=== PATIENT | female | born 1970 | race Caucasian/White ===

== ENCOUNTER → 2017-07-30 | Day surgery (SDC) | payer OTHER ==
--- NOTE | 2017-07-29 12:05 | Diagnostic Imaging Report ---
PROCEDURE: Frontal and lateral views of the chest. COMPARISON: None. INDICATIONS: PRE OPERATIVE CHEST X-RAY FOR ANKLE SURGERY FINDINGS: Lines/tubes: None. Lungs: The lungs are well inflated. 1.2 x 1.1 x 1.0 cm pulmonary nodule in the anterior left upper lobe. There is no evidence of pneumonia or pulmonary edema. Pleura: There is no pleural effusion or pneumothorax. Heart and mediastinum: Cardiothymic silhouette is unremarkable. Pulmonary vasculature is normal. Bones: No acute bony abnormality. IMPRESSION: 1. No acute cardiopulmonary abnormalities. 2. 1.2 cm pulmonary nodule in the anterior left upper lobe, which is indeterminate. Recommend contrast enhanced chest CT for further evaluation. Findings discussed with Dr. Powell, July 29, 2017 at 12 00 hours Abimael Louis M.D. Dictated by: Abimael Louis M.D. on 07/29/2017 at 12:15 Electronically approved by: Abimael Louis M.D. on 07/29/2017 at 12:15
[~2017-07-30] MED LIST: ACETAMINOPHEN 1000 MG/100 ML 100 ML IV ONE; ACETAMINOPHEN 1000 MG/100 ML IV ONE; ACETAMINOPHEN/CODEINE 300MG - 30MG TAB ONE; BACITRACIN 50,000 UNIT VIAL ONE; BUPIVACAINE HCL 0.5% INJ 30 ML VIAL INJ ONE; BUSPIRONE HCL5 MG PO; CEFAZOLIN SOD 2 GM/D5W 50ML 50 ML IV ONE; DEXAMETHASONE SOD PHOS INJ 4 MG/ML VIAL ONE; FENTANYL CITRATE/PF 100MCG/2 ML INJ ONE; LIDOCAINE HCL 2% LOCAL INJ 5 ML SDV VIAL INJ ONE; MELATONIN10 MG PO; MIDAZOLAM HCL 2 MG/2 ML VIAL ONE; ONDANSETRON HCL INJ 2 MG/ML VIAL ONE; PROAIR HFA INH8.5 GM INH; PROPOFOL IV EMULSION 10 MG/ML 20 ML VIAL ONE; ROCURONIUM BROMIDE 10 MG/ML 5ML VIAL ONE; SEVOFLURANE INHAL SOLN 250 ML PEN BTL ONE
--- OUTSIDE RECORDS SUMMARY | 2017-07-30 06:01 | XMS REPORT ---
Author Author [facility] Address Unknown Phone Unavailable Care Team Providers Care Makeup Sales Consultant Name Role Phone IVANA POWELL Unavailable Unavailable Problems This patient has no known problems. Allergies, Adverse Reactions, Alerts This patient has no known allergies or adverse reactions. Medications This patient has no known medications. Results Test Description Test Time Test Comments Text Results Atomic Results Result Comments CHEST 2 VIEWS [place] [id number] Patient Name: SKYLAR LALNOS MR #: [id number] : 1970 Age/Sex: 47/F Req #: [id number] Adm Physician: Ordered by: IVANA POWELL MD Report #: [id number] Location: OR Room/Bed: Procedure: [id number] DX/CHEST 2 VIEWS Exam Date: 07/29/17 Exam Time: 1000 REPORT STATUS: Signed PROCEDURE: Frontal and lateral views of the chest. COMPARISON: None. INDICATIONS: PRE OPERATIVE CHEST X- RAY FOR ANKLE SURGERY FINDINGS: Lines/tubes: None. Lungs: The lungs are well inflated. 1.2 x 1.1 x 1.0 cm pulmonary nodule in the anterior left upper lobe. There is no evidence of pneumonia or pulmonary edema. Pleura: There is no pleural effusion or pneumothorax. Heart and mediastinum: Cardiothymic silhouette is unremarkable. Pulmonary vasculature is normal. Bones: No acute bony abnormality. IMPRESSION : 1. No acute cardiopulmonary abnormalities. 2. 1.2 cm pulmonary nodule in the anterior left upper lobe, which is indeterminate. Recommend contrast enhanced chest CT for further evaluation. Findings discussed with Dr. Powell, July 29, 2017 at 12 00 hours Rock Louis M.D. Dictated by: Rock Louis M.D. on 07/29/2017 at 12:15 Electronically approved by: Rock Louis M.D. on 07/29/2017 at 12:15 Dictated By: ROCK LOUIS MD [id number] Transcribed By: GEENA on 07/29/17 1215 COPY TO: IVANA POWELL MD
--- NOTE | 2017-07-31 10:35 | Operative Report ---
DATE OF PROCEDURE: July 30, 2017 PREOPERATIVE DIAGNOSIS: Subacute right bimalleolar-equivalent ankle fracture with syndesmosis injury. POSTOPERATIVE DIAGNOSIS: Subacute right bimalleolar-equivalent ankle fracture with syndesmosis injury. PROCEDURE PERFORMED 1. Examination of the right ankle under anesthesia. 2. Open takedown of the right syndesmosis ligament and scar tissue. 3. A reduction of the right syndesmosis and ankle mortise and screw stabilization of the right ankle syndesmosis. VICE PRESIDENT SAFETY: Hortensia Abrams. ANESTHESIA: General endotracheal intubation anesthesia. IV FLUIDS: Per the anesthesia record. DESCRIPTION OF PROCEDURE: Ms. Jesus was taken to the operating room and placed in the supine position on the operating table. Following induction of general anesthesia as well as general endotracheal intubation, the patient's right lower extremity was examined under anesthesia. She was found to have a normal-appearing ankle. Fluoroscopic evaluation of the ankle joint demonstrated a widened medial ankle space as well as widening of the patient's syndesmosis. The patient's fibula appeared to be healed, but showed evidence of callus formation in the region of a previous ankle fracture. Attempts were made to reduce the patient's ankle mortise in a closed fashion. This was unsuccessful. The patient's lower extremity was prepped and draped in a standard surgical fashion. Incision was created directly over the fibula. This incision was carried through the skin only. Blunt dissection used to deepen the incision, and the superficial peroneal nerve was identified and protected throughout the remainder of the case. The dissection was deepened to the level of the fibula. Examination of the fibula demonstrated that the patient's fibular fracture had healed. The dissection was carried anteriorly over the anterior surface of the fibula into the region of the syndesmosis, and scar tissue was debrided from this region. Examination of the syndesmosis demonstrated hypermobility. Examination of the fibular fracture demonstrated the fibula was healed. A towel clip was placed on the fibula, and gentle pressure was placed on the fibula and demonstrated a hypermobile, unstable syndesmosis. The dissection was carried anteriorly, and scar tissue was debrided between the fibula and tibia. This allowed reduction of the patient's syndesmosis. A tenaculum clamp was then placed on the ankle joint, and the syndesmosis was held in its reduced position. Fluoroscopic evaluation of the ankle joint demonstrated realignment of the syndesmosis as well as realignment of the ankle mortise. A plate was then chosen and affixed to the lateral aspect of the fibula. Two screws were inserted from lateral to medial through the fibula into the tibia in the region of the syndesmosis while the foot was held in neutral dorsiflexion. This provided stabilization of the syndesmosis in its reduced position. The wound was then copiously irrigated. Fluoroscopic evaluation of the ankle joint demonstrated a reduction of the patient's syndesmosis as well as the ankle mortise. The patient's wounds were copiously irrigated and closed in a multilayer fashion. Sterile dressings were applied, and the patient was provided a well-padded, multisided splint. She was awakened and taken to the postanesthesia care unit in stable condition. Job#: [id number]
== END | disposition home or self-care (01) ==
LOC: OR 05:58
PROVIDERS: ATTEND Specialist
DX: S82.841A Displaced bimalleolar fracture of right lower leg, initial encounter for closed fracture (principal); S93.421A Sprain of deltoid ligament of right ankle, initial encounter; S93.491A Sprain of other ligament of right ankle, initial encounter; J45.909 Unspecified asthma, uncomplicated; E66.01 Morbid (severe) obesity due to excess calories; F41.9 Anxiety disorder, unspecified; F17.210 Nicotine dependence, cigarettes, uncomplicated; W10.9XXA Fall (on) (from) unspecified stairs and steps, initial encounter; Z01.810 Encounter for preprocedural cardiovascular examination; Z01.818 Encounter for other preprocedural examination; Z68.38 Body mass index [BMI] 38.0-38.9, adult
CPT/HCPCS: 27829; 71046; 76000; 81025; 93005; J1100; J2001; J2250; J2405; C1713

== ENCOUNTER → 2017-10-08 | Day surgery (SDC) | payer OTHER ==
[~2017-10-08] MED LIST changes: -ACETAMINOPHEN 1000 MG/100 ML IV ONE; -ACETAMINOPHEN/CODEINE 300MG - 30MG TAB ONE; -CEFAZOLIN SOD 2 GM/D5W 50ML 50 ML IV ONE; +CLINDAMYCIN PHOS 900MG/ D5W 50 50 ML IV ONE; +KETOROLAC TROMETHAMINE 30 MG/ML VIAL ONE; +METOCLOPRAMIDE HCL 10 MG/2ML VIAL ONE; -ROCURONIUM BROMIDE 10 MG/ML 5ML VIAL ONE
--- NOTE | 2017-10-09 02:00 | Operative Report ---
DATE OF PROCEDURE: October 08, 2017 PREOPERATIVE DIAGNOSIS: Symptomatic hardware, right ankle. POSTOPERATIVE DIAGNOSIS: Symptomatic hardware, right ankle. OPERATION/PROCEDURE PERFORMED: Patient underwent open removal of 2 syndesmosis screws. LEAD REFINERY SUPERVISOR: None. ANESTHESIA: IV sedation and monitored anesthesia care. BRIEF DESCRIPTION OF OPERATIVE PROCEDURE: Ms. Jesus was taken to the operating room, placed in supine position on operating table. Upon induction of general anesthesia, as well as endotracheal intubation, the patient's right lower extremity was examined under anesthesia. She was found to have a surgical incision from a previous open reduction and internal fixation of a distal fibula fracture with syndesmosis fixation. The patient's incision was opened over the syndesmosis screw. This was achieved with combination of both sharp and blunt dissection. The dissection was carried to the level of the plate and the 2 syndesmosis screws were removed at time of surgery. The remaining plate and screws were left in place. This wound was copiously irrigated. Fluoroscopic evaluation demonstrated complete removal of the screws. There was no opening of the syndesmosis and under fluoroscopic guidance, the ankle was stressed and the syndesmosis remained stable. The wound was again copiously irrigated and closed in a multilayer fashion. Sterile dressings were applied and the patient was provided with safety orthosis, awakened and taken to the postanesthesia care unit in stable condition. Job#: [id number] CQ
== END | disposition home or self-care (01) ==
LOC: OR 12:04
PROVIDERS: ATTEND Specialist
PROC: 0YP90YZ Removal of Other Device from Right Lower Extremity, Open Approach (ICD-10-PCS; principal; 2017-10-08 13:30)
DX: Z46.89 Encounter for fitting and adjustment of other specified devices (principal); S93.421A Sprain of deltoid ligament of right ankle, initial encounter; S93.431A Sprain of tibiofibular ligament of right ankle, initial encounter; J45.909 Unspecified asthma, uncomplicated; F17.210 Nicotine dependence, cigarettes, uncomplicated; Z88.0 Allergy status to penicillin; X58.XXXA Exposure to other specified factors, initial encounter; Z68.38 Body mass index [BMI] 38.0-38.9, adult
CPT/HCPCS: 20680; 76000; 81025; J1100; J1885; J2001; J2250; J2405; J2765